=== PATIENT | female | born 1975 | race Two or more races ===

== ENCOUNTER 2021-07-01 12:45 | Inpatient (IN) | payer OTHER ==
[~2021-07-01] VITALS: Ht 144.8 cm; Wt 109.8 kg
[2021-07-02] MEDS ORDERED: SYNTHROID100 MCG PO (11:39)
[2021-07-02] MEDS ORDERED: ZESTRIL5 MG PO (11:39)
== END 2021-07-05 11:25 | disposition home or self-care (01) | DRG 741 ==
LOC: O/R 07-03 06:30 → SURH 07-03 10:00 → OB/GYN 07-03 15:33
PROVIDERS: ADMIT Specialist; ATTEND Specialist
PROC: 0UT24ZZ Resection of Bilateral Ovaries, Percutaneous Endoscopic Approach (ICD-10-PCS; 2021-07-03)
PROC: 0UT74ZZ Resection of Bilateral Fallopian Tubes, Percutaneous Endoscopic Approach (ICD-10-PCS; 2021-07-03)
PROC: 07BC4ZZ Excision of Pelvis Lymphatic, Percutaneous Endoscopic Approach (ICD-10-PCS; 2021-07-03)
PROC: 0UT94ZZ Resection of Uterus, Percutaneous Endoscopic Approach (ICD-10-PCS; principal; 2021-07-03 10:00)
DX: C54.1 Malignant neoplasm of endometrium (principal); D36.0 Benign neoplasm of lymph nodes